=== PATIENT | male | born 1945 | race Caucasian/White ===

== ENCOUNTER 2017-01-12 06:36 | Day surgery (SDC) | payer MEDICARE ==
--- NOTE | 2017-01-04 16:15 | HP ---
PREOPERATIVE HISTORY AND PHYSICAL: DATE OF SURGERY/ADMISSION: 01/12/17 ATTENDING SURGEON: Regina Kumar MD * (DICTATED BY SEBASTIEN REZA) PROCEDURE: Right ring finger Dupuytren's excision. CHIEF COMPLAINT: Right ring finger contracture. HISTORY OF PRESENT ILLNESS: This is a 71-year-old male who has a lump in the palm of his hand that has been present for several years. It is slowly progressing to the point where he has now a contracture of his ring finger. 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 After evaluation by Dr. Kumar, the patient has agreed to proceed with a right ring finger Dupuytren's excision. PAST MEDICAL HISTORY: 1. Hypercholesterolemia. 2. Diabetes. 3. Hypertension. PAST SURGICAL HISTORY: 1. Cleft lip reconstruction. 2. Right carpal tunnel release. 3. 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 4. Bladder tumor excision. CURRENT MEDICATIONS: 1. Aspirin 81 mg daily. 2. Caltrate 600 Plus D 1 tablet daily. 3. CoQ10 100 mg daily. 4. Losartan potassium 25 mg daily. 5. MegaRed [place]-3 Krill oil daily. 6. Metformin HCl ER 500 mg daily. 7. Metoprolol succinate ER 25 mg daily. 8. Multivitamin daily. 9. Rosuvastatin calcium 20 mg daily. 10. Vitamin C 500 mg daily. 11. Vitamin D3 1000 units daily. ALLERGIES: PENICILLIN causes hives. FAMILY MEDICAL HISTORY: Significant for cancer. SOCIAL HISTORY: The patient is retired. He denies tobacco use and recreational drug use. He does admit to alcohol use on rare occasion. REVIEW OF SYSTEMS: General: Negative for fevers, chills or night sweats. No known anesthesia problems. HEENT: Negative for headache, lightheadedness or syncopal episodes. Integumentary: Negative for abrasions, lesions, or open wounds. Cardiothoracic: Positive for hypertension. Negative for chest pain, palpitations or edema. Pulmonary: Negative for shortness of breath with exertion, chronic cough, COPD. GI: Negative for nausea, vomiting, diarrhea, constipation, or GERD. : Negative for nocturia, urinary frequency, urgency, history of UTIs or kidney problems. Musculoskeletal: Positive for current complaint. Negative for chronic or intermittent back pain or history of fractures. Neurological: Negative for paresthesias, numbness, history of seizure, stroke or epilepsy. Endocrine: Positive for diabetes. Negative for thyroid issues. Hematologic: Negative for easy bruising, anemia, excessive bleeding or history of DVT. Infectious Disease: Negative for history of MRSA, hepatitis C or HIV. PHYSICAL EXAMINATION GENERAL: Well-developed, well-nourished 71-year-old male in no acute distress. VITAL SIGNS: Height 6 feet 10.5 inches, weight 228 pounds. Pulse rate 68, blood pressure 120/62. HEENT: Normocephalic, atraumatic. Pupils are equal, round and reactive to light and accommodation. Extraocular movements are intact. NECK: Supple. No palpable lymph nodes. Throat is clear. PULMONARY: Lungs are clear to auscultation bilaterally. No wheezes, rales or rhonchi. CARDIOVASCULAR: Regular rate and rhythm. S1, S2. No murmurs, rubs or gallops. No edema. ABDOMEN: Positive bowel sounds. Soft, nontender. NEUROLOGIC: Alert and oriented x3. Cranial nerves II through XII are intact. Sensation is intact to light touch. MUSCULOSKELETAL: On exam of his right hand, there is a Dupuytren's contracture with the cord causing an MP contracture of the ring finger. There is no PIP contracture. It is about a 30 degree contracture. There is no tenderness. He can fully flex his fingers into a good fist and neurovascular function is intact. IMPRESSION: Dupuytren's contracture right ring finger. PLAN: The patient is scheduled to undergo a right ring finger Dupuytren's excision with Dr. Kumar on 01/12/17. He will return to the office 10 to 14 days postop for followup and suture removal. A prescription for [place] was e- scribed to the patient's pharmacy for postoperative pain management. SEBASTIEN REZA [id number]/[facility] #: [id number] MTDD
[~2017-01-12 06:36] MED LIST: Buffered Lidocaine 0.9% SYRIN* 5 ML/SYR SYRINGE INTRADERM ONE
[2017-01-12] MEDS ORDERED: Clindamycin 900 MG IVPREMIX(* 900 MG/50 ML SDV IV ONE (06:46)
[2017-01-12] MEDS ORDERED: Lidocaine 1% INJ* 10 MG/ML 30 ML SDV ONE (07:13)
[2017-01-12] MEDS ORDERED: fentaNYL* 50 MCG/ML 2 ML VIAL (100 MCG VIAL) ONE (07:30)
[2017-01-12] MEDS ORDERED: Midazolam* 1 MG/ML 2 ML VIAL (2 MG) ONE (07:30)
[2017-01-12] MEDS ORDERED: Lidocaine 2% PF * 5 ML VIAL ONE ×2 (07:49→08:57)
[2017-01-12] MEDS ORDERED: Ketorolac INJ* 30 MG/ML 1 ML VIAL ONE ×2 (07:49→08:57)
[2017-01-12] MEDS ORDERED: Propofol* 10 MG/ML 20 ML BTL IV PUSH ONE ×2 (07:49→08:57)
[2017-01-12] MEDS ORDERED: Ondansetron INJ* 2 MG/ML VIAL IV PRN (07:59)
[2017-01-12] MEDS ORDERED: Acetaminophen TAB* 325 MG PO PRN (07:59)
[2017-01-12 08:48] VITALS: BP 98/63
--- NOTE | 2017-01-13 04:15 | OP ---
DATE OF OPERATION: 01/12/[address] [facility] DATE OF : 47 SURGEON: Regina Kumar MD PRODUCTION CONTROL CLERK: SEBASTIEN Talley ANESTHESIOLOGIST: ANESTHESIA: Local MAC. PRE-OP DIAGNOSIS: Right ring finger Dupuytren's contracture. POST-OP DIAGNOSIS: Right ring finger Dupuytren's contracture. OPERATIVE PROCEDURE: Right ring finger Dupuytren's removal. INDICATIONS: Shravan is a 71-year-old man with a Dupuytren's contracture of his MP joint of the right ring finger. He presents for excision of the contracture. ESTIMATED BLOOD LOSS: Zero. TOURNIQUET TIME: About 30 minutes. DESCRIPTION OF PROCEDURE: The patient was brought to the operating room, was given a sedation anesthetic, and a local infiltration of 10 cc of 1% plain lidocaine in the palm of the right hand. The skin of his right hand and forearm was prepped and draped in the usual sterile fashion. The hand and forearm were exsanguinated and the tourniquet elevated to 250 mmHg. Zigzag incisions were made centered over the Dupuytren and skin flaps were carefully elevated off the cord. The cord was then removed in its entirety taking care to retract the neurovascular bundles. This retraction was provided in essential by the surgical appliance fitter, Gayla Schuster. This wound was irrigated and skin edges reapproximated with 4-0 nylon suture. The wound was dressed with Xeroform, 4x4, Webril, and an Yazan wrap. The patient tolerated the procedure well and was brought to the recovery room in good condition. [id number]/[facility] #: [id number] [facility]
--- NOTE | 2017-01-16 04:29 | OP ---
CC: Dr. Kumar OPERATIVE REPORT: ADDENDUM: The blank should say cord. [id number]/[facility] #: [id number]
== END 2017-01-12 09:00 | disposition home or self-care (01) ==
LOC: OREAST 06:36
PROVIDERS: ATTEND Orthopaedic Surgery
DX: M72.0 Palmar fascial fibromatosis [Dupuytren] (principal); E78.00 Pure hypercholesterolemia, unspecified; I10 Essential (primary) hypertension; E11.9 Type 2 diabetes mellitus without complications; Z79.84 Long term (current) use of oral hypoglycemic drugs; Z79.82 Long term (current) use of aspirin; Z88.0 Allergy status to penicillin
CPT/HCPCS: 88304; J1885; J2001; J2250; J2704; J3010